=== PATIENT | female | born 1950 | race Caucasian/White ===

== ENCOUNTER 2019-12-23 08:43 | Outpatient (CLI) | payer BC, MEDICARE ==
--- NOTE | 2019-12-23 09:17 | RAD ---
EXAM: Chest PA and lateral: HISTORY: Cough. Pain. COMPARISON: 05/22/2017 FINDINGS: Stable right hilar calcified lymph nodes and stable calcified granuloma in the right upper lobe. Heart: Normal cardiac silhouette Aorta: Unremarkable Pulmonary vessels: Normal Costophrenic angles: Costophrenic angles are clear. Lungs: No consolidation or masses. Pneumothorax: No pneumothorax Osseous structures: No osseous abnormalities IMPRESSION: No acute cardiopulmonary process.
[2019-12-23] MEDS ORDERED: ADENOSINE 60 MG/20 ML VIAL ONE (09:20)
--- NOTE | 2019-12-23 11:59 | NM ---
EXAM: CARDIAC SPECT HISTORY: Chest pain, diabetes mellitus, dyslipidemia TECHNIQUE: A myocardial perfusion scan was performed using the single isotope 1 day protocol with izaiah hnetium 99m sestamibi. [10 mCi] was injected intravenously for the rest exam followed by 30 mCi for the stress study. Pharmacologic stress with adenosine was monitored and interpreted by Dr. Vo FINDINGS: Homogeneous tracer distribution is seen in the myocardial segments on stress and rest image s without fixed or reversible defects. Gated SPECT LVEF: 87% Wall motion exam: Normal IMPRESSION: Normal myocardial perfusion scan
== END 2019-12-23 08:44 | disposition home or self-care (01) ==
LOC: NM 08:43
PROVIDERS: ATTEND Internal Medicine
DX: R05 Cough (principal); R07.9 Chest pain, unspecified
CPT/HCPCS: 71046; 78452; 93017; A9500; J0153

== ENCOUNTER 2021-07-26 10:03 | Outpatient (CLI) | payer BC, MEDICARE | END 2021-07-26 10:04 | disposition home or self-care (01) | LOC: SJX 10:03 | PROVIDERS: ATTEND Otolaryngology Plastic Surgery within the Head & Neck | DX: M54.2 Cervicalgia (principal) | CPT/HCPCS: 70491; 82565 ==

== ENCOUNTER 2021-08-28 12:33 | Outpatient (CLI) | payer BC, MEDICARE ==
[2021-08-28 23:40] LABS: SARS-CoV-2 PCR by NAA Not Detected (NotDetected)
== END 2021-08-28 12:34 | disposition home or self-care (01) ==
LOC: LABBT 12:33
PROVIDERS: ATTEND Internal Medicine Cardiovascular Disease
DX: Z20.822 Contact with and (suspected) exposure to COVID-19 (principal)
CPT/HCPCS: U0003; U0005

== ENCOUNTER 2021-08-31 10:12 | Day surgery (SDC) | payer BC, MEDICARE ==
[2021-08-30 09:46] VITALS: BMI 29.3
[2021-08-31] MEDS ORDERED: Insulin Regular 300 UNITS/3 ML VIAL ONE (10:36)
[2021-08-31] MEDS ORDERED: HumaLOG 300 UNITS/3 ML VIAL ONE (10:38)
[2021-08-31] MEDS ORDERED: Ketamine 50 MG/ML (10ML VIAL) ONE (11:54)
[2021-08-31] MEDS ORDERED: PROPOFOL 20 ML ONE (11:54)
[2021-08-31] MEDS ORDERED: PROPOFOL 200 MG/20 ML VIAL ONE (12:10)
== END 2021-08-31 13:20 | disposition home or self-care (01) ==
LOC: SDC 10:12
PROVIDERS: ATTEND Internal Medicine Cardiovascular Disease
PROC: B246ZZ4 Ultrasonography of Right and Left Heart, Transesophageal (ICD-10-PCS; principal; 2021-08-31)
DX: I07.1 Rheumatic tricuspid insufficiency (principal); I10 Essential (primary) hypertension; E78.2 Mixed hyperlipidemia; E11.9 Type 2 diabetes mellitus without complications; E03.9 Hypothyroidism, unspecified; Z86.73 Personal history of transient ischemic attack (TIA), and cerebral infarction without residual deficits; Z79.02 Long term (current) use of antithrombotics/antiplatelets; Z79.4 Long term (current) use of insulin; Z79.82 Long term (current) use of aspirin; Z79.84 Long term (current) use of oral hypoglycemic drugs; Z79.899 Other long term (current) drug therapy; Z88.2 Allergy status to sulfonamides; Z88.5 Allergy status to narcotic agent; Z88.8 Allergy status to other drugs, medicaments and biological substances
CPT/HCPCS: 36416; 93312; J1815; J2704

== ENCOUNTER 2022-07-09 06:12 | Day surgery (SDC) | payer BC, MEDICARE ==
[2022-07-04 16:13] VITALS: BMI 24.5
[~2022-07-09 06:12] MED LIST: EPINEPHrine 0.3 MG in Ophthalmic Irrigation Solution 500 ML IRR SCH
[2022-07-09] MEDS ORDERED: fentaNYL 50 mcg/mL 1 mL Vial ONE (06:39)
[2022-07-09] MEDS ORDERED: Midazolam HCl 2 mg/2 ml Vial ONE (06:39)
[2022-07-09] MEDS ORDERED: Phenylephrine 2.5% Ophth Soln 5 ML BOT ONE (06:51)
[2022-07-09] MEDS ORDERED: Cyclopentolate 1% Opth Drop 2 ML BOT ONE (06:51)
[2022-07-09] MEDS ORDERED: Triamcinolone 40 MG/ML VIAL ONE (07:54)
[2022-07-09] MEDS ORDERED: Lidocaine 1% PF 5 ML VIAL ONE (07:54)
[2022-07-09] MEDS ORDERED: Lidocaine 4% PF 5 ML AMP ONE (07:54)
[2022-07-09] MEDS ORDERED: Maxitrol 0.1% Opth Oint 3.5 GM TUBE ONE (07:54)
[2022-07-09] MEDS ORDERED: CEFAZOLIN 1 GM VIAL ONE (07:54)
[2022-07-09] MEDS ORDERED: Indocyanine Green 25 MG/10 ML VIAL ONE (07:54)
[2022-07-09] MEDS ORDERED: Bupivacaine 0.75% 10 ML VIAL ONE (07:54)
[2022-07-09] MEDS ORDERED: PROPOFOL 200 MG/20 ML VIAL ONE (07:54)
== END 2022-07-09 09:02 | disposition home or self-care (01) ==
LOC: SDC 06:12
PROVIDERS: ATTEND Ophthalmology Retina Specialist
PROC: 08T53ZZ Resection of Left Vitreous, Percutaneous Approach (ICD-10-PCS; principal; 2022-07-09)
PROC: 08NF3ZZ Release Left Retina, Percutaneous Approach (ICD-10-PCS; principal; 2022-07-09)
DX: H35.372 Puckering of macula, left eye (principal); Z79.02 Long term (current) use of antithrombotics/antiplatelets; Z79.4 Long term (current) use of insulin; Z79.82 Long term (current) use of aspirin; Z79.84 Long term (current) use of oral hypoglycemic drugs; Z79.890 Hormone replacement therapy; Z79.899 Other long term (current) drug therapy; Z88.2 Allergy status to sulfonamides; Z88.5 Allergy status to narcotic agent; Z88.8 Allergy status to other drugs, medicaments and biological substances
CPT/HCPCS: J0171; J0690; J2250; J2704; J3010; J3301; J3490

== ENCOUNTER 2025-02-04 13:11 | Outpatient (CLI) | payer BC, MEDICARE | END 2025-02-04 13:12 | disposition home or self-care (01) | LOC: SCSRAD 13:11 | PROVIDERS: ATTEND Family Medicine | DX: S99.921A Unspecified injury of right foot, initial encounter (principal); S99.911A Unspecified injury of right ankle, initial encounter; S92.121A Displaced fracture of body of right talus, initial encounter for closed fracture ==